=== PATIENT | female | born 1945 | race African-American/Black ===

== ENCOUNTER 2024-10-19 09:40 | Emergency (ER) | payer BC, MEDICARE ==
[~2024-10-19] VITALS: Ht 160 cm; Wt 68.2 kg
[2024-10-19 09:59] VITALS: TEMP 98.2
[2024-10-19] MEDS ORDERED: TIMO5DRO18 OU (10:04)
[2024-10-19] MEDS ORDERED: ATOR40TA71 PO (10:04)
[2024-10-19] MEDS ORDERED: VERA40TA5 PO (10:04)
[2024-10-19] MEDS ORDERED: BIMA2.5D4 OU (10:04)
[2024-10-19] MEDS: HYDROCODONE/ACETAMINOPHEN 5-325 MG TABLET PO ONE (11:53)
[2024-10-19 12:41] VITALS: BP 172/74; PULSE 67; RESP 15; O2SAT 98
[2024-10-19] MEDS ORDERED: HYDR-4072 PO (13:53)
[2024-10-19] MEDS ORDERED: HYDR-4062 PO (17:04)
== END 2024-10-19 18:24 | disposition home or self-care (01) ==
LOC: EMS 09:44
DX: S93.601A Unspecified sprain of right foot, initial encounter (principal); I10 Essential (primary) hypertension; E78.00 Pure hypercholesterolemia, unspecified; Z88.6 Allergy status to analgesic agent; Z79.899 Other long term (current) drug therapy; W19.XXXA Unspecified fall, initial encounter; Y93.89 Activity, other specified; Y92.89 Other specified places as the place of occurrence of the external cause; Y99.8 Other external cause status
CPT/HCPCS: 99283